=== PATIENT | female | born 1995 | race Caucasian/White ===

== ENCOUNTER 2018-10-10 22:06 | Emergency (ER) | payer MEDICAID ==
[~2018-10-10] VITALS: Ht 165.1 cm; Wt 93.2 kg
[2018-10-10 22:22] VITALS: Ht 165.1 cm; Wt 93.2 kg
[2018-10-10] MEDS ORDERED: BREO ELLIPTA 11 EACH INH (22:25)
[2018-10-10] MEDS ORDERED: ALBUTEROL SULF8.5 GM INH (22:25)
[2018-10-10] MEDS ORDERED: TENORMIN25 MG PO (22:25)
[2018-10-11 01:12] LABS: HEMOGLOBIN 12.2 g/dL (12-16); LYMPHOCYTES 41.4 % (15-50); MCH 29.6 pg (26.0-34.0); MCHC 33.9 g/dL (31.0-37.0); MCV 87.4 fL (80.0-100.0); MEAN PLATELET VOLUME 10.3 fL (7.4-10.4); NEUTROPHILS 55.3 % (40-80); PLATELET COUNT 177 10x3/uL (130-400); RBC 4.12 10x6/uL (4.00-5.40)
[2018-10-11 01:24] LABS: APTT 34.1 SECONDS (22.8-39.4); INR 0.99 (0.85-1.17); PROTIME 12.6 SECONDS (11.6-15.0)
[2018-10-11 01:36] LABS: ALBUMIN 3.8 g/dL (3.4-5.0); ALKALINE PHOSPHATASE 75 U/L (46-116); ALT (SGPT) 22 U/L (10-68); BILIRUBIN - TOTAL 0.19 mg/dL (0.2-1.3); CALC OSMOLALITY 275 mosm/kg (275-300); CALCIUM 8.8 mg/dL (8.5-10.1); CARBON DIOXIDE 25.1 mmol/L (21.0-32.0); CHLORIDE - SERUM 104 mmol/L (98-107); CREATININE - SERUM 0.6 mg/dL (0.6-1.3); GLUCOSE 87 mg/dL (74-106); POTASSIUM - SERUM 3.7 mmol/L (3.5-5.1); PROTEIN - SERUM 7.2 g/dL (6.4-8.2); SODIUM 138 mmol/L (136-145); UREA NITROGEN 14 mg/dL (7-18); eGFR NON AFRICAN AMERICAN > 90 mL/min (90-120)
[2018-10-11 01:41] LABS: CKMB 1.7 U/L (0.0-3.6); CREATINE KINASE 123 UL (21-215); MAGNESIUM - SERUM 1.9 mg/dL (1.8-2.4); THYROID STIMULATING HORMONE 2.39 uIU/mL (0.36-3.74); TROPONIN-I < 0.017 ng/mL (0.000-0.060)
[2018-10-11 02:15] VITALS: BP 122/70
== END 2018-10-11 02:31 | disposition home or self-care (01) ==
LOC: D.ER 22:06
PROVIDERS: Family Medicine
DX: R53.1 Weakness (principal); R20.2 Paresthesia of skin; F17.200 Nicotine dependence, unspecified, uncomplicated

== ENCOUNTER 2020-08-19 12:01 | Outpatient (CLI) | payer MEDICAID ==
[~2020-08-19] VITALS: Ht 165.1 cm; Wt 84.1 kg
[~2020-08-19 12:01] MED LIST: ALBUTEROL SULF8.5 GM INH; BREO ELLIPTA 11 EACH INH; TENORMIN25 MG PO; ZOFRAN ODT4 MG/UDTAB PO
--- NOTE | 2020-08-19 13:19 | NUR ---
COMPLAINTS OF BURNING AT PICC LINE SITE, STATES IT STARTED YESTERDAY EVENING. LINE WILL GIVE A BLOOD RETURN AND FLUSHES EASILY, BUT PT STATES IT IS BURING WHEN DOING THAT. CALL TO DR. WELCH, NEW ORDERS TO CONSULT INTERVENTIONAL RADIOLOGY. STEPHANIE WITH IR NOTIFIED.
[2020-08-19 13:40] VITALS: BP 116/65; Ht 165.1 cm; Wt 84.1 kg
--- NOTE | 2020-08-19 15:20 | NUR ---
PT PICC LINE DRESSING CHANGED USING STERILE TECHNIQUE, PT TOLERATED WELL.
--- NOTE | 2020-08-19 16:08 | NUR ---
PT DC INSTRUCTIONS REVIEWED AT THIS TIME, PT VERBALIZES UNDERSTANDING. PT PERIPHERAL 22G IV REMOVED AT THIS TIME, INTACT, NO REDNESS OR SWELLING NOTED AT SITE. NAD NOTED.
== END 2020-08-19 16:08 | disposition home or self-care (01) ==
LOC: D.OPS 12:01
PROVIDERS: ATTEND Obstetrics & Gynecology
DX: R11.2 Nausea with vomiting, unspecified (principal)

== ENCOUNTER 2020-08-27 10:46 | Outpatient (CLI) | payer MEDICAID ==
[~2020-08-27] VITALS: Ht 165.1 cm; Wt 86.4 kg
[2020-08-27 11:49] VITALS: BP 119/77; Ht 165.1 cm; Wt 86.4 kg
[2020-08-27 15:07] LABS: ALBUMIN 2.8 g/dL (3.4-5.0); ALKALINE PHOSPHATASE 82 U/L (30-120); ALT (SGPT) 15 U/L (10-68); CALC OSMOLALITY 269 mosm/kg (275-300); CALCIUM 7.7 mg/dL (8.5-10.1); CARBON DIOXIDE 22.7 mmol/L (21.0-32.0); CHLORIDE - SERUM 106 mmol/L (98-107); CREATININE - SERUM 0.6 mg/dL (0.6-1.3); GLUCOSE 95 mg/dL (74-106); MAGNESIUM - SERUM 2.5 mg/dL (1.8-2.4); POTASSIUM - SERUM 3.9 mmol/L (3.5-5.1); PROTEIN - SERUM 5.9 g/dL (6.4-8.2); SODIUM 136 mmol/L (136-145); UREA NITROGEN 7 mg/dL (7-18); eGFR NON AFRICAN AMERICAN > 90 mL/min (90-120)
== END 2020-08-27 14:30 | disposition home or self-care (01) ==
LOC: D.OPS 10:46
PROVIDERS: ATTEND Obstetrics & Gynecology
DX: O21.0 Mild hyperemesis gravidarum (principal); Z3A.00 Weeks of gestation of pregnancy not specified

== ENCOUNTER 2020-09-03 09:34 | Outpatient (CLI) | payer MEDICAID ==
[~2020-09-03] VITALS: Ht 165.1 cm; Wt 86.4 kg
[2020-09-03 10:27] VITALS: BP 139/82; Ht 165.1 cm; Wt 86.4 kg
--- NOTE | 2020-09-03 15:13 | NUR ---
1504 PICC LINE DRESSING CHANGE COMPLETED. BANANA BAG AND LR COMPLETED. LAB DRAWN PER ORDERS. NO OTHER NEEDS ASSESSED. DC'D HOME AMBULATORY. ADVISED TO CALL OR COME BACK IF ANY PROBLEMS.
[2020-09-03 15:25] LABS: ALBUMIN 2.6 g/dL (3.4-5.0); ALKALINE PHOSPHATASE 83 U/L (30-120); ALT (SGPT) 16 U/L (10-68); BILIRUBIN - TOTAL 0.13 mg/dL (0.2-1.3); CALC OSMOLALITY 274 mosm/kg (275-300); CALCIUM 7.9 mg/dL (8.5-10.1); CHLORIDE - SERUM 106 mmol/L (98-107); CREATININE - SERUM 0.5 mg/dL (0.6-1.3); GLUCOSE 86 mg/dL (74-106); MAGNESIUM - SERUM 2.1 mg/dL (1.8-2.4); POTASSIUM - SERUM 4.1 mmol/L (3.5-5.1); SODIUM 139 mmol/L (136-145); UREA NITROGEN 6 mg/dL (7-18); eGFR NON AFRICAN AMERICAN > 90 mL/min (90-120)
== END 2020-09-03 15:04 | disposition home or self-care (01) ==
LOC: D.OPS 09:34
PROVIDERS: ATTEND Obstetrics & Gynecology
DX: O21.0 Mild hyperemesis gravidarum (principal)

== ENCOUNTER 2020-09-11 09:44 | Outpatient (CLI) | payer MEDICAID ==
[~2020-09-11] VITALS: Ht 165.1 cm; Wt 87.3 kg
[2020-09-11 12:23] VITALS: Ht 165.1 cm; Wt 87.3 kg
--- NOTE | 2020-09-11 14:40 | NUR ---
BANANA BAG COMPLETED. IV FLUIDS COMPLETED. PICC LINE DRESSING CHANGE CHANGE COMPLETED USING STERILE TECHNIQUE. LABS DRAWN AND PATIENT DC'D TO LABOR AND DELIVERY.
[2020-09-11] MEDS ORDERED: PROTONIX20 MG PO (14:41)
[2020-09-11] MEDS ORDERED: PHENERGAN50 MG RC (14:41)
[2020-09-11 14:52] LABS: ALBUMIN 2.6 g/dL (3.4-5.0); ALKALINE PHOSPHATASE 89 U/L (30-120); ALT (SGPT) 20 U/L (10-68); BILIRUBIN - TOTAL 0.11 mg/dL (0.2-1.3); CALC OSMOLALITY 270 mosm/kg (275-300); CALCIUM 7.7 mg/dL (8.5-10.1); CARBON DIOXIDE 23.1 mmol/L (21.0-32.0); CHLORIDE - SERUM 105 mmol/L (98-107); CREATININE - SERUM 0.6 mg/dL (0.6-1.3); GLUCOSE 108 mg/dL (74-106); POTASSIUM - SERUM 3.9 mmol/L (3.5-5.1); PROTEIN - SERUM 5.5 g/dL (6.4-8.2); SODIUM 136 mmol/L (136-145); UREA NITROGEN 7 mg/dL (7-18); eGFR NON AFRICAN AMERICAN > 90 mL/min (90-120)
== END 2020-09-11 14:24 | disposition home or self-care (01) ==
LOC: D.OPS 09:44 → D.LDO 09:44 → D.OPS 10:00 → D.LDO 14:24
PROVIDERS: ATTEND Obstetrics & Gynecology
DX: O24.419 Gestational diabetes mellitus in pregnancy, unspecified control (principal)

== ENCOUNTER 2020-09-15 13:28 | Outpatient (CLI) | payer MEDICAID ==
[2020-09-11 12:23] VITALS: BMI 32.0
[~2020-09-15 13:28] MED LIST changes: +PHENERGAN50 MG RC; +PROTONIX20 MG PO
== END 2020-09-15 14:00 | disposition home or self-care (01) ==
LOC: D.LDO 13:28
PROVIDERS: ATTEND Obstetrics & Gynecology
DX: O24.419 Gestational diabetes mellitus in pregnancy, unspecified control (principal)

== ENCOUNTER 2020-09-18 10:46 | Outpatient (CLI) | payer MEDICAID ==
[~2020-09-18] VITALS: Ht 165.1 cm; Wt 86.4 kg
[2020-09-18 14:01] VITALS: BP 118/69; Ht 165.1 cm; Wt 86.4 kg
--- NOTE | 2020-09-18 14:54 | NUR ---
RIGHT UPPER ARM PICC DRESSING CHANGED. STATES LESS REDNESS AND IRRITATION, IMPROVING PER PATIENT. NO DRAINAGE NOTED. CAPS CHANGED, CHG DISC CHANGED
[2020-09-18 15:54] LABS: ALBUMIN 2.5 g/dL (3.4-5.0); ALKALINE PHOSPHATASE 93 U/L (30-120); ALT (SGPT) 15 U/L (10-68); BILIRUBIN - TOTAL 0.08 mg/dL (0.2-1.3); CALC OSMOLALITY 275 mosm/kg (275-300); CALCIUM 7.6 mg/dL (8.5-10.1); CARBON DIOXIDE 22.4 mmol/L (21.0-32.0); CHLORIDE - SERUM 107 mmol/L (98-107); CREATININE - SERUM 0.6 mg/dL (0.6-1.3); GLUCOSE 138 mg/dL (74-106); MAGNESIUM - SERUM 2.1 mg/dL (1.8-2.4); PROTEIN - SERUM 5.5 g/dL (6.4-8.2); SODIUM 138 mmol/L (136-145); UREA NITROGEN 6 mg/dL (7-18); eGFR NON AFRICAN AMERICAN > 90 mL/min (90-120)
== END 2020-09-18 16:16 | disposition home or self-care (01) ==
LOC: D.LDO 10:46 → D.OPS 10:46
PROVIDERS: ATTEND Obstetrics & Gynecology
DX: O24.419 Gestational diabetes mellitus in pregnancy, unspecified control (principal)

== ENCOUNTER 2020-09-22 10:38 | Outpatient (CLI) | payer MEDICAID | END 2020-09-22 12:05 | disposition home or self-care (01) | LOC: D.LDO 10:38 | DX: O24.419 Gestational diabetes mellitus in pregnancy, unspecified control (principal) ==

== ENCOUNTER 2020-09-25 09:00 | Outpatient (CLI) | payer MEDICAID ==
[~2020-09-25] VITALS: Ht 165.1 cm; Wt 86.4 kg
[2020-09-25 09:23] VITALS: BP 126/73; Ht 165.1 cm; Wt 86.4 kg
--- NOTE | 2020-09-25 13:37 | NUR ---
PICC LINE DRESSING CHANGE COMPLETED USING STERILE TECHNIQUE. ALL LINES FLUSHED. CAPS CHANGED. LAB DRAW COMPLETED AND SENT TO LAB PER ORDERS. ALL INFUSIONS COMPLETED. DC'D HOME AMBULATORY AT 1325. NO S/S OF ACUTE DISTRESS NOTED.
[2020-09-25 14:07] LABS: ALBUMIN 2.5 g/dL (3.4-5.0); ALKALINE PHOSPHATASE 98 U/L (30-120); ALT (SGPT) 13 U/L (10-68); BILIRUBIN - TOTAL 0.16 mg/dL (0.2-1.3); CALC OSMOLALITY 272 mosm/kg (275-300); CALCIUM 8.1 mg/dL (8.5-10.1); CARBON DIOXIDE 21.1 mmol/L (21.0-32.0); CHLORIDE - SERUM 105 mmol/L (98-107); CREATININE - SERUM 0.6 mg/dL (0.6-1.3); GLUCOSE 111 mg/dL (74-106); PROTEIN - SERUM 5.4 g/dL (6.4-8.2); SODIUM 137 mmol/L (136-145); UREA NITROGEN 6 mg/dL (7-18); eGFR NON AFRICAN AMERICAN > 90 mL/min (90-120)
== END 2020-09-25 13:25 | disposition home or self-care (01) ==
LOC: D.LDO 09:00 → D.OPS 09:00 → D.LDO 13:25
PROVIDERS: ATTEND Obstetrics & Gynecology
DX: O24.419 Gestational diabetes mellitus in pregnancy, unspecified control (principal)

== ENCOUNTER 2020-09-29 08:52 | Emergency (ER) | payer MEDICAID ==
[~2020-09-29] VITALS: Ht 165.1 cm; Wt 86.4 kg
[2020-09-29 08:53] VITALS: Ht 165.1 cm; Wt 86.4 kg
[2020-09-29 09:24] LABS: CALC OSMOLALITY 272 mosm/kg (275-300); CARBON DIOXIDE 23.9 mmol/L (21.0-32.0); CHLORIDE - SERUM 103 mmol/L (98-107); CREATININE - SERUM 0.8 mg/dL (0.6-1.3); GLUCOSE 141 mg/dL (74-106); POTASSIUM - SERUM 3.4 mmol/L (3.5-5.1); SODIUM 136 mmol/L (136-145); UREA NITROGEN 9 mg/dL (7-18); eGFR NON AFRICAN AMERICAN > 90 mL/min (90-120)
[2020-09-29 09:25] LABS: BASOPHILS 0.2 % (0-2); EOSINOPHILS 1.7 % (0-7); HEMATOCRIT 34.4 % (36.0-48.0); HEMOGLOBIN 10.8 g/dL (12-16); IMMATURE GRANULOCYTES 0.2 % (0-5); LYMPHOCYTE ABS# 1.03 10x3/uL (1.18-3.74); LYMPHOCYTES 19.8 % (15-50); MCH 26.8 pg (26.0-34.0); MCHC 31.4 g/dL (31.0-37.0); MCV 85.4 fL (80.0-100.0); MEAN PLATELET VOLUME 11.7 fL (7.4-10.4); MONOCYTES 3.1 % (2-11); NEUTROPHIL ABS# 3.89 10x3/uL (1.56-6.13); RBC 4.03 10x6/uL (4.00-5.40); RDW 13.6 % (11.5-14.5); WBC 5.2 10x3/uL (4.8-10.8)
[2020-09-29 09:26] LABS: PLATELET COUNT 123 10x3/uL (130-400)
[2020-09-29 09:30] LABS: APTT 28.2 SECONDS (22.8-39.4); INR 1.07 (0.85-1.17); PROTIME 12.9 SECONDS (11.6-15.0)
[2020-09-29 09:41] LABS: ALBUMIN 2.9 g/dL (3.4-5.0); ALKALINE PHOSPHATASE 114 U/L (30-120); ALT (SGPT) 14 U/L (10-68); BILIRUBIN - TOTAL 0.22 mg/dL (0.2-1.3); CKMB 0.9 U/L (0.0-3.6); CREATINE KINASE 40 UL (21-215); MAGNESIUM - SERUM 1.8 mg/dL (1.8-2.4); PROTEIN - SERUM 6.7 g/dL (6.4-8.2)
[2020-09-29 09:43] LABS: TROPONIN-I < 0.017 ng/mL (0.000-0.060)
[2020-09-29] MEDS ORDERED: MEDROL DOSE PACK4 MG PO (09:58)
[2020-09-29 10:28] VITALS: BP 124/69
== END 2020-09-29 10:29 | disposition home or self-care (01) ==
LOC: D.ER 08:52
PROVIDERS: Emergency Medicine
DX: R07.89 Other chest pain (principal); M79.603 Pain in arm, unspecified

== ENCOUNTER 2020-09-29 10:38 | Outpatient (CLI) | payer MEDICAID ==
[2020-09-29 08:53] VITALS: BMI 31.6
[~2020-09-29 10:38] MED LIST changes: +MEDROL DOSE PACK4 MG PO
== END 2020-09-29 11:18 | disposition home or self-care (01) ==
LOC: D.LDO 10:38
PROVIDERS: ATTEND Obstetrics & Gynecology
DX: O24.419 Gestational diabetes mellitus in pregnancy, unspecified control (principal)

== ENCOUNTER 2020-10-01 09:59 | Outpatient (CLI) | payer MEDICAID ==
[~2020-10-01] VITALS: Ht 167.6 cm; Wt 86.4 kg
[2020-10-01 11:04] VITALS: BP 129/77; Ht 167.6 cm; Wt 86.4 kg
--- NOTE | 2020-10-01 11:10 | NUR ---
PATIENT RECEIVED WITH RIGHT UPPER ARM PICC LINE. ON ARRIVAL, PICC LINE DRESSING WITH CHG DISC AND THERESE DRESSING TO SITE, NO TEGADERM. STATES SHE WAS IN ED ON TUESDAY DUE TO CHEST DISCOMFORT AND HAD TEGADERM DRESSING REMOVED DUE TO IRRITATION AND ERP STATED NOT TO REPLACE TEGADERM DUE TO IRRITATION. SOME MILD REDNESS OF ARM. DR WELCH NOTIFIED AND RECEIVED ORDER FOR REMOVAL OF PICC LINE. PICC LINE REMOVED WITH 40 CM CATH INTACT, SITE DRESSED WITH NEW CHG DISC AND TEGADERM DRESSING TO SITE. INSTRUCTED HANNAH TO REMOVE DRESSING IN AM.
--- NOTE | 2020-10-01 15:10 | NUR ---
1100 BANANA BAG INFUSION STARTED, COMPLETED AT 1300. LR ONE LITER INFUSED FROM 1300 TO 1450 IV REMOVED W CATH INTACT. DISCHARGED AMBULATORY AFTER BLOOD DRAWN ORDERED.
[2020-10-01 15:51] LABS: ALBUMIN 2.7 g/dL (3.4-5.0); ALKALINE PHOSPHATASE 107 U/L (30-120); ALT (SGPT) 14 U/L (10-68); BILIRUBIN - TOTAL 0.15 mg/dL (0.2-1.3); CALC OSMOLALITY 274 mosm/kg (275-300); CALCIUM 8.1 mg/dL (8.5-10.1); CHLORIDE - SERUM 105 mmol/L (98-107); CREATININE - SERUM 0.6 mg/dL (0.6-1.3); GLUCOSE 119 mg/dL (74-106); MAGNESIUM - SERUM 1.9 mg/dL (1.8-2.4); POTASSIUM - SERUM 4.3 mmol/L (3.5-5.1); PROTEIN - SERUM 5.8 g/dL (6.4-8.2); SODIUM 138 mmol/L (136-145); UREA NITROGEN 7 mg/dL (7-18); eGFR NON AFRICAN AMERICAN > 90 mL/min (90-120)
== END 2020-10-01 14:55 | disposition home or self-care (01) ==
LOC: D.OPS 09:59
PROVIDERS: ATTEND Obstetrics & Gynecology
DX: O21.0 Mild hyperemesis gravidarum (principal)

== ENCOUNTER 2020-10-02 09:23 | Outpatient (CLI) | payer MEDICAID ==
[2020-10-01 11:04] VITALS: BMI 30.7
== END 2020-10-02 10:45 | disposition home or self-care (01) ==
LOC: D.LDO 09:23
PROVIDERS: ATTEND Obstetrics & Gynecology
DX: O35.9XX0 Maternal care for (suspected) fetal abnormality and damage, unspecified, not applicable or unspecified (principal)

== ENCOUNTER 2020-10-09 13:41 | Outpatient (CLI) | payer MEDICAID ==
[2020-10-01 11:04] VITALS: BMI 30.7
== END 2020-10-09 17:09 | disposition home or self-care (01) ==
LOC: D.LDO 13:41
PROVIDERS: ATTEND Obstetrics & Gynecology
DX: O24.419 Gestational diabetes mellitus in pregnancy, unspecified control (principal)

== ENCOUNTER 2020-10-13 11:18 | Outpatient (CLI) | payer MEDICAID ==
[2020-10-01 11:04] VITALS: BMI 30.7
== END 2020-10-13 13:25 | disposition home or self-care (01) ==
LOC: D.LDO 11:18
PROVIDERS: ATTEND Obstetrics & Gynecology
DX: O35.9XX0 Maternal care for (suspected) fetal abnormality and damage, unspecified, not applicable or unspecified (principal)

== ENCOUNTER 2020-10-15 17:10 | Outpatient (CLI) | payer MEDICAID ==
[2020-10-01 11:04] VITALS: Ht 167.6 cm; Wt 86.2 kg
[~2020-10-15] VITALS: Ht 167.6 cm; Wt 86.2 kg
[2020-10-15 18:46] LABS: BASOPHILS 0.1 % (0-2); EOSINOPHILS 0.3 % (0-7); HEMATOCRIT 33.5 % (36.0-48.0); HEMOGLOBIN 10.7 g/dL (12-16); IMMATURE GRANULOCYTES 0.1 % (0-5); LYMPHOCYTE ABS# 1.36 10x3/uL (1.18-3.74); LYMPHOCYTES 19.9 % (15-50); MCH 26.4 pg (26.0-34.0); MCHC 31.9 g/dL (31.0-37.0); MCV 82.7 fL (80.0-100.0); MEAN PLATELET VOLUME 11.5 fL (7.4-10.4); MONOCYTES 4.8 % (2-11); NEUTROPHIL ABS# 5.12 10x3/uL (1.56-6.13); NEUTROPHILS 74.8 % (40-80); PLATELET COUNT 146 10x3/uL (130-400); RBC 4.05 10x6/uL (4.00-5.40); WBC 6.9 10x3/uL (4.8-10.8)
[2020-10-15 18:54] LABS: CALC OSMOLALITY 271 mosm/kg (275-300); CARBON DIOXIDE 21.8 mmol/L (21.0-32.0); CHLORIDE - SERUM 103 mmol/L (98-107); CREATININE - SERUM 0.7 mg/dL (0.6-1.3); GLUCOSE 84 mg/dL (74-106); SODIUM 137 mmol/L (136-145); UREA NITROGEN 10 mg/dL (7-18); eGFR NON AFRICAN AMERICAN > 90 mL/min (90-120)
[2020-10-15 18:58] LABS: PROTEIN - URINE 56.8 mg/dL (0.0-11.9)
[2020-10-15 19:00] LABS: ALBUMIN 2.9 g/dL (3.4-5.0); ALKALINE PHOSPHATASE 128 U/L (30-120); ALT (SGPT) 19 U/L (10-68); BILIRUBIN - DIRECT 0.08 mg/dL (0.00-0.30); BILIRUBIN - INDIRECT 0.08 mg/dL (0.00-1.00); BILIRUBIN - TOTAL 0.16 mg/dL (0.2-1.3); PROTEIN - SERUM 6.7 g/dL (6.4-8.2); URIC ACID 4.3 mg/dL (2.6-7.2)
[2020-10-15 19:03] LABS: CREATININE - URINE 435.4 mg/dL (30-125); PRO/CRE RATIO URINE 0.1 mg/g
[2020-10-15 19:22] LABS: BILIRUBIN NEGATIVE (NEGATIVE); KETONE NEGATIVE (NEGATIVE); NITRITE NEGATIVE (NEGATIVE); UROBILINOGEN NORMAL mg/dL (< 2)
== END 2020-10-15 20:42 | disposition home or self-care (01) ==
LOC: D.LDO
PROVIDERS: ATTEND Obstetrics & Gynecology
DX: O24.419 Gestational diabetes mellitus in pregnancy, unspecified control (principal)

== ENCOUNTER 2020-10-20 11:00 | Outpatient (CLI) | payer SELFPAY ==
[2020-10-01 11:04] VITALS: BMI 30.7
== END 2020-10-20 11:53 | disposition home or self-care (01) ==
LOC: D.LDO 11:00
PROVIDERS: ATTEND Obstetrics & Gynecology
DX: O24.419 Gestational diabetes mellitus in pregnancy, unspecified control (principal)

== ENCOUNTER 2020-10-23 05:10 | Inpatient (IN) | payer MEDICAID ==
[~2020-10-23] VITALS: Ht 167.6 cm; Wt 88.2 kg
[2020-10-23 05:47] VITALS: BP 125/61
[2020-10-23 06:44] LABS: HEMATOCRIT 32.8 % (36.0-48.0); HEMOGLOBIN 10.5 g/dL (12-16); MCH 26.5 pg (26.0-34.0); MCV 82.8 fL (80.0-100.0); MEAN PLATELET VOLUME 12.1 fL (7.4-10.4); RBC 3.96 10x6/uL (4.00-5.40); RDW 14.2 % (11.5-14.5); WBC 7.6 10x3/uL (4.8-10.8)
[2020-10-23 06:50] LABS: UDS - AMPHET NEGATIVE QUAL (NEGATIVE); UDS - BARB NEGATIVE QUAL (NEGATIVE); UDS - BENZO NEGATIVE QUAL (NEGATIVE); UDS - COCAINE NEGATIVE QUAL (NEGATIVE); UDS - OPIATE NEGATIVE QUAL (NEGATIVE); UDS - PCP NEGATIVE QUAL (NEGATIVE); UDS - THC NEGATIVE QUAL (NEGATIVE)
--- NOTE | 2020-10-24 05:30 | NUR ---
PT UP TO VOID FIRST TIME. 800 MLS RED TINGED URINE. TUCKS AND DERMAPLAST APPLIED. PT MOVED TO ROOM 1274.
--- NOTE | 2020-10-24 05:45 | NUR ---
PT REQUEST PAIN MEDICATION. PERCOCET 5 ADMINISTERED PER EMAR. TOWELS, AND GOWN PROVIDED. BLANKET AND ICE WATER PROVIDED. FF,MIDLINE U2. SMALL AMOUNT RUBRA LOCHIA NOTED. PT DENIES OTHER NEEDS AT THIS TIME.
[2020-10-24 07:16] LABS: RAPID PLASMA REAGIN Non Reactive (Non Reactive)
--- NOTE | 2020-10-24 08:38 | NUR ---
JAIME, COUNSELOR TO BEDSIDE, PROVIDING ASSISTANCE TO PT AND ANSWERING BF QUESTIONS.
[2020-10-24 09:09] VITALS: BP 131/67
--- NOTE | 2020-10-24 09:09 | NUR ---
LACATION COUNSELOR OUT OF ROOM. RN TO BEDSIDE, SHIFT ASSESSMENT COMPLETED PER FLOWSHEET. VSS. FF, MIDLINE AND U2 WITH SMALL AMT RUBRA LOCHIA, NO CLOTS NOTED. REPORTS THAT SHE IS VOIDING AND PASSING FLATUS WITHOUT DIFFICULTY. SUTURES TO PERINEAL LAC INTACT, WELL APPROXIMATED. ICE PACK PROVIDED. C/O ABD CRAMPING 2/10, DENIES NEED FOR INTERVENTION. POC DISCUSSED WITH PT AND SIGNIFICANT OTHER, BOTH VERBALIZE UNDERSTANDING. R HAND PIV SL. FOB BONDING WITH . ICE WATER PROVIDED. DENIES ADDITIONAL NEEDS. BED IN LOW POSITION WITH SRUP X2. CALL LIGHT AND PHONE WITHIN REACH. SIG OTHER SUPPORTIVE TO PT AND .
--- NOTE | 2020-10-24 10:07 | NUR ---
RESTING IN SEMI-FOWLERS POSITION WITH EYES CLOSED. RESP REGULAR AND UNLABORED, NO S/S OF DISTRESS. NOTED. BED IN LOW POSITION WITH SRUP X2. CALL LIGHT AND PHONE WITHIN REACH. SIG OTHER RESTING ON COUCH AT BEDSIDE.
--- NOTE | 2020-10-24 11:21 | NUR ---
RN TO BEDSIDE. DISCUSSED WITH PT REGLAN DOSE. PT REPORTS THAT SHE IS NOT NAUSEATED AND DOSE FEEL LIKE SHE NEEDS REGLAN DOSE. DR. WELCH NOTIFIED AND ORDERS REC'D.
[2020-10-24 11:47] VITALS: BP 123/81
--- NOTE | 2020-10-24 11:47 | NUR ---
SITTING UP ON EDGE OF BED PREPARING TO EAT LUNCH TRAY. C/O ABD CRAMPING 3-09/27. MEDICATED PER EMAR. VSS. FF, MIDLINE AND U2 WITH SMALL AMT RUBRA LOCHIA. DENIES ADDITIONAL NEEDS. TALON MARTÍNEZ NBN TO BEDSIDE WITH .
--- NOTE | 2020-10-24 12:19 | NUR ---
PAIN REASSESSMENT COMPLETED, REPORTS PAIN 06/29. DENIES ADDITIONAL NEED. CARING FOR INFANT.
--- NOTE | 2020-10-24 14:48 | NUR ---
UP TO SHOWER. VERBALIZES UNDERSTANDING OF BR CALL LIGHT USE. SIG OTHER REMAINS IN ROOM WITH PT. STEADY GAIT NOTED. DENIES PAIN AND NEEDS AT THIS TIME.
[2020-10-24 15:41] VITALS: Ht 167.6 cm; Wt 88.2 kg
--- NOTE | 2020-10-24 15:47 | NUR ---
AMBULATORY IN BUNDY WITH SIG OTHER. STEADY GAIT NOTED. PADS AND PANTIES PROVIDED PER PT REQUEST.
--- NOTE | 2020-10-24 15:53 | NUR ---
RESTING QUIETLY WITH EYES CLOSED IN SEMI-FOWLERS POSITION. RESP REGULAR AND UNLABORED, NO S/S OF DISTRESS NOTED. PT NOT DISTURBED TO ALLOW FOR REST.
--- NOTE | 2020-10-24 16:58 | NUR ---
REQUEST "SOMETHING FOR ITCHING FROM THE WHERE THE TAPE WAS." REDDENED AREAS NOTED, NO RASH. PT REPORTS THAT SHE IS SENSITIVE TO ADHESIVES. REPORT CALLED TO DR. TORRES AND ORDERS REC'D. PT UPDATED ON NEW ORDERS AND VERBALIZES APPRECIATION.
--- NOTE | 2020-10-24 17:41 | NUR ---
RESTING WITH EYES CLOSED. RESP REGULAR AND UNLABORED, NO S/S OF DISTRESS NOTED. BED IN LOW POSITION WTH SRUP X2. CALL LIGHT AND PHONE WITHIN REACH.
[2020-10-24 20:49] VITALS: BP 124/71
--- NOTE | 2020-10-24 20:49 | NUR ---
PT REC'D IN BED AT THIS TIME. STATES PAIN 10/27. MEDICATED WITH MOTRIN AT THIS TIME PER Gisela Holly RN. FUNDUS FIRM AND MIDLINE. SMALL LOCHIA NOTED. CALL LIGT IN EASY REACH. NO DISTRESS NOTED. Jules RIDDLE RN
--- NOTE | 2020-10-24 22:05 | NUR ---
PT REC'D IN BED ASLEEP BUT EASILY AWAKENED. NO NEEDS VOICED/ PT STATES PAIN 08/27. NO DISTRESS NOTED. Jules RIDDLE RN
--- NOTE | 2020-10-25 00:26 | NUR ---
pt medicated for indigestion at this time. see mar. gema stanford rn
--- NOTE | 2020-10-25 02:30 | NUR ---
PT REC'D IN BED AT THIS TIME. RESTING WELL. NO DISTRESS NOTED. Jules RIDDLE RN
--- NOTE | 2020-10-25 08:00 | NUR ---
AM ASSESSMENT COMPLETED. SEE FLOWSHEET. PT ASKING IF DR. WELCH PUT ORDERS IN FOR CLARITIN, THEY TALKED ABOUT THIS YESTERDAY. EMAR REVIEWED, CLARITIN ORDER NOT ON EMAR. WILL SPEAK WITH DR. TORRES WHEN MD ROUNDS. PT DENIES ALL OTHER NEEDS AT THIS TIME. SRUP X2, CALL LIGHT AND PHONE WITHIN REACH.
[2020-10-25 08:03] LABS: BASOPHILS 0.2 % (0-2); EOSINOPHILS 1.3 % (0-7); HEMATOCRIT 29.2 % (36.0-48.0); HEMOGLOBIN 9.1 g/dL (12-16); IMMATURE GRANULOCYTES 0.2 % (0-5); LYMPHOCYTE ABS# 1.12 10x3/uL (1.18-3.74); LYMPHOCYTES 18.8 % (15-50); MCH 25.9 pg (26.0-34.0); MCHC 31.2 g/dL (31.0-37.0); MCV 83.2 fL (80.0-100.0); MEAN PLATELET VOLUME 11.5 fL (7.4-10.4); MONOCYTES 7.9 % (2-11); NEUTROPHIL ABS# 4.27 10x3/uL (1.56-6.13); NEUTROPHILS 71.6 % (40-80); PLATELET COUNT 123 10x3/uL (130-400); RBC 3.51 10x6/uL (4.00-5.40); RDW 14.4 % (11.5-14.5)
[2020-10-25 08:04] VITALS: BP 113/70
[2020-10-25 08:14] LABS: CALC OSMOLALITY 281 mosm/kg (275-300); CALCIUM 8.4 mg/dL (8.5-10.1); CHLORIDE - SERUM 108 mmol/L (98-107); CREATININE - SERUM 0.7 mg/dL (0.6-1.3); GLUCOSE 88 mg/dL (74-106); POTASSIUM - SERUM 3.8 mmol/L (3.5-5.1); SODIUM 143 mmol/L (136-145); UREA NITROGEN 7 mg/dL (7-18); eGFR NON AFRICAN AMERICAN > 90 mL/min (90-120)
--- NOTE | 2020-10-25 11:30 | NUR ---
DIETARY SERVES REGULAR LUNCH TRAY, PT DENIES ALL OTHER NEEDS AT THIS TIME. SRUP X2, CALL LIGHT AND PHONE WITHIN REACH.
--- NOTE | 2020-10-25 12:15 | NUR ---
DR. TORRES ON UNIT, WITH ROUNDS MADE BY
--- NOTE | 2020-10-25 13:45 | NUR ---
XRAY HERE FOR CX ORDERED BY DR. TORRES, MD ORDERED EARLIER AFTER MD ASSESSES PT.
--- NOTE | 2020-10-25 15:45 | NUR ---
DR. TORRES AT [facility] HAS REVIEWED CXR RESULTS, WITH VERBAL ORDER RECEIVED FOR PT TO DISCHARGE HOME.
[2020-10-25 16:00] VITALS: BP 128/62
--- NOTE | 2020-10-25 16:00 | NUR ---
DR. TORRES AT [facility], VERBAL ORDER RECEIVED TO DISCHARGE HOME TO FOLLOW UP IN [address] WELCH. STATES SHE IS UNABLE TO SIGN DISCHARGE ORDER SHE DOES NOT HAVE THE BUTTON TO PLACE ORDER. RN WILL PLACE VERBAL DISCHARGE ORDER.
--- NOTE | 2020-10-25 19:40 | NUR ---
pt rec'd up on couch. discharge instructions reviewed with patient. pt provided with copy. discharge indtructions signed at this time. gema stanford rn
--- NOTE | 2020-10-25 19:45 | NUR ---
pt discharged from unit in stable condition via wheelchair to personal vehicle. no distress noted. gema stanford rn
== END 2020-10-25 19:45 | disposition home or self-care (01) | DRG 807 ==
LOC: D.LD 05:10
PROVIDERS: ADMIT Obstetrics & Gynecology; ATTEND Obstetrics & Gynecology
PROC: 10E0XZZ Delivery of Products of Conception, External Approach (ICD-10-PCS; principal; 2020-10-24)
DX: O24.429 Gestational diabetes mellitus in childbirth, unspecified control (principal); Z37.0 Single live birth; Z3A.39 39 weeks gestation of pregnancy; O69.81X0 Labor and delivery complicated by cord around neck, without compression, not applicable or unspecified; O26.893 Other specified pregnancy related conditions, third trimester; Z67.91 Unspecified blood type, Rh negative; Z87.891 Personal history of nicotine dependence

== ENCOUNTER → 2020-12-05 10:20 | Outpatient (CLI) | payer MEDICAID ==
[2020-10-24 15:41] VITALS: BMI 31.3
== END | disposition home or self-care (01) ==
LOC: D.US 10:00
PROVIDERS: ATTEND Obstetrics & Gynecology
DX: M79.632 Pain in left forearm (principal)